=== PATIENT | female | born 1995 | race Caucasian/White ===

== ENCOUNTER 2020-08-12 19:27 | Emergency (ER) | payer SELFPAY ==
[2020-08-12 19:33] VITALS: BP 130/87; PULSE 108; RESP 14; TEMP 36.9; O2SAT 96; BMI 35.5
--- NOTE | 2020-08-12 20:06 | XRR_ITS ---
PROCEDURE INFORMATION: Exam: XR Chest Exam date and time: 08/12/2020 8:08 PM Age: 24 years old Clinical indication: Shortness of breath; Patient HX: Nausea, STEIN, allergies this week, and chest pressure; Additional info: Unwell feeling TECHNIQUE: Imaging protocol: XR of the chest. Views: 1 view. COMPARISON: No relevant prior studies available. FINDINGS: No focal pulmonary consolidation is demonstrated on this single frontal image. No significant obscuration of the lateral costophrenic angles is demonstrated. No significant vascular congestion is demonstrated. Visualized cardiac silhouette size appears within normal limits. XR/XR chest 1V portable [id number] IMPRESSION: No acute pulmonary process is demonstrated.
--- NOTE | 2020-08-12 20:06 | CTR_ITS ---
PROCEDURE INFORMATION: Exam: CT Head Without Contrast Exam date and time: 08/12/2020 8:08 PM Age: 24 years old Clinical indication: Pain; Prior surgery; Surgery type: Cholesteatoma; Patient HX: Headache. TECHNIQUE: Imaging protocol: Computed tomography of the head without contrast. Radiation optimization: All CT scans at this facility use at least one of these dose optimization techniques: automated exposure control; mA and/or kV adjustment per patient size (includes targeted exams where dose is matched to clinical indication); or iterative reconstruction. ADDITIONAL STUDY INFORMATION: Total DLP (mGy-cm): 832.71 COMPARISON: No relevant prior studies available. FINDINGS: Evaluation of the brain demonstrates no areas of abnormal density. Size of ventricular system appears within normal limits for the patient's stated age. No depressed calvarial fracture is demonstrated. There are changes of partial left mastoidectomy, with ill-defined density in this region which could be postoperative changes but residual neoplasm cannot be excluded. Visualized paranasal sinuses and right mastoid air cells demonstrate no significant opacification. CT/CT head wo con* [id number] IMPRESSION: No acute intracranial process is demonstrated. There are changes of partial left mastoidectomy, with ill-defined density in this region which could be postoperative changes but residual neoplasm cannot be excluded. No prior studies are available for comparison. Radiation Dose CTDIVOL = (mGy): DLP = 832.71 (mGy-cm)
--- NOTE | 2020-08-12 20:08 | W.ED.GENADLT ---
HPI - General Adult General: Chief complaint: General Medical Stated complaint: General unwellness Time Seen by Provider: 08/12/20 19:32 Source: patient and family (grandmother) Mode of arrival: ambulatory Limitations: no limitations History of Present Illness: HPI narrative: Patient is a 24-year-old female who presents to ED today along with her grandmother for complaints of feeling unwell. Patient tells me last week she had asthma symptoms consisting of nasal drainage/congestion, sinus pain, and a sore throat. She tells me those symptoms seem to get better however she still complains of a mild sore throat. She tells me today she woke up with a headache that she is rating at a 7/10. She does tell me she has a history of migraine headaches when she was a teenager has not had one in a long time. She tells me she does have sensitivity to light and sound which is typical for her migraines however she states her headache is located in the frontal region and seems to be worse with sitting up and walking and improved with lying flat which she states is uncharacteristic. When asked if this is the worst headache of her life she states oh no I've had much worse . She does complain of feeling nauseous but has not had any episodes of vomiting. No visual changes. No fevers. She states on the ride over here she began feeling flushed thus rolled down a window and states she began having chest pain. She tells me she has a history of asthma diagnosed as a child but has never had any issues with this. She is not currently complaining of shortness of breath or difficulty breathing. She states the pain in her chest is worse with inhalation. She is complaining of fatigue but states she is chronically fatigued. She states she had a sleep study several years ago which showed abnormal sleep patterns. She does not complain of neck pain or neck stiffness. Onset (ago): day(s) Associated symptoms: Reports chest pain, headache(s) and nausea; Deny confusion, dyspnea, malaise, rash, palpitations, syncope or vomiting Treatments prior to arrival: none Review of Systems Const: Reports: fatigue (chronic); Denies: fever(s), chills, body aches, change in appetite, change in weight, malaise or night sweats Eyes: Reports: photophobia; Denies: change in vision, blurry vision, floaters or seeing flashes ENMT: Reports: throat pain, odynophagia and sinus pain (frontal); Denies: ear or mastoid pain, ear discharge, disequilibrium, nasal discharge, nasal congestion, epistaxis or post nasal drip Card: Reports: chest pain; Denies: palpitations, irregular heart rhythm, edema, swelling of feet/ankles, lightheadedness, syncope, pre-syncope, dyspnea on exertion, orthopnea or leg pain with exertion Resp: Reports: pain on inspiration; Denies: dyspnea, productive cough, non-productive cough, change in phlegm color, hemoptysis or chest congestion GI: Reports: nausea; Denies: abdominal pain, vomiting or diarrhea : Denies: flank pain, difficulty voiding, dysuria, urinary frequency, urinary urgency or urinary hesitancy Musc: Denies: neck pain, back pain or joint pain Skin/Breast: Denies: rash Neuro: Reports: headache(s); Denies: numbness in extremities, weakness in extremities, sensory changes, lack of coordination, difficulty walking, frequent falls, dizziness or confusion Physical Exam Const: COMMON NORMALS: no acute distress, average body habitus, patient oriented x3, no limitations, healthy appearing, alert and well nourished GENERAL APPEARANCE: cooperative ORIENTATION/CONSCIOUSNESS: Yes awake, Yes oriented to person, Yes oriented to place and Yes oriented to time HENMT: COMMON NORMALS: normocephalic, atraumatic, hearing grossly normal bilaterally, external ears normal, EAC's normal, Normal external nose present, Normal nasal mucous membranes and turbinates present, moist oral mucous membranes, oropharynx normal, dentition normal and gingiva normal HEAD & SCALP: normal to inspection, normocephalic and atraumatic FACE & SINUS: normal facial exam and sinus tenderness frontal NOSE: Normal external nose present and Normal nasal mucous membranes and turbinates present EXTERNAL EAR: Yes external ears normal EXTERNAL AUDITORY CANAL: EAC's normal TYMPANIC MEMBRANE: TM normal on the right and TM abnormal TM laterality: left (changes related to cholesteatoma surgery) MOUTH: Normal oral and palatal mucosa present, lip normal and tongue normal TEETH & GINGIVA: Yes fair dentition THROAT: posterior oropharynx normal, tonsils normal and uvula midline Eye: COMMON NORMALS: Equal, round and reactive pupils present, EOMs intact bilaterally and conjunctivae normal GENERAL EYE: appearance normal, both eyes and all related structures PERIORBITAL: periorbital findings normal CONJUNCTIVA: Yes conjunctivae normal SCLERA: sclerae normal CORNEA: Yes corneas normal PUPIL: Yes Equal, round and reactive pupils present Neck/C-Spine: COMMON NORMALS: full ROM, no lymphadenopathy and no meningeal signs CERVICAL SPINE: Yes cervical ROM normal, No pain with cervical ROM, No Cervical spine tenderness and No Paracervical muscle tenderness OTHER: Negative Kerning and Brudzinski's sign Resp: COMMON NORMALS: normal respiratory effort and clear to auscultation bilaterally AUSCULTATION: clear to auscultation bilaterally Cardio: COMMON NORMALS: regular rate and regular rhythm RATE: regular rate RHYTHM: regular rhythm GI: COMMON NORMALS: Normal to inspection, nondistended, normoactive bowel sounds present, Soft to palpation, non-tender, No hepatosplenomegaly present and no masses PALPATION: Yes Soft to palpation and Yes No hepatosplenomegaly present Back/Pelvis: COMMON NORMALS: thoracic and lumbar spine normal to inspection, no thoracic nor lumbar tenderness, thoraco-lumbar ROM normal and straight leg raise negative bilaterally Extremity: COMMON NORMALS: normal to inspection and full ROM GENERAL: Yes normal exam except as noted Neuro: EDGAR COMA SCALE: document GCS findings Edgar coma scale eye opening: Spontaneous Rawlings coma scale verbal response: Orientated Rawlings coma scale motor response: Obey commands Rawlings coma scale total score: 15 COMMON NORMALS: patient oriented x3 and moves all extremities SENSORIUM/ORIENTATION: Yes alert, Yes oriented to person, Yes oriented to place and Yes oriented to time MENINGEAL SIGNS: Yes no meningeal signs Skin: COMMON NORMALS: no rashes or lesions noted GENERAL SKIN EXAM: no rashes or lesions noted TRAUMA: no lacerations or abrasions Course Vital Signs: Vital signs: Vital Signs Temperature 98.4 F 08/12/20 19:33 Pulse Rate 95 08/12/20 21:38 Respiratory Rate 18 08/12/20 21:38 Blood Pressure 118/69 08/12/20 21:38 Pulse Oximetry 97 08/12/20 21:38 MDM - General Adult MDM Narrative: Medical decision making narrative: Patient here with several physical complaints including headache. Questionable whether this was a migraine or possibly related to viral illness. She complains of a sore throat, nausea, fatigue and chest pain. URI symptoms last week. Her vital signs are normal. Work-up is fairly unremarkable. She has a nonspecific mild elevation to her CRP. Villalba and COVID are negative. CXR is normal. Head CT is normal. Radiologist did comment on changes related to her left mastoidectomy. She does not complain of ear pain or drainage. Clinically physical exam is not concerning for meningitis. At this time we discussed symptomatic treatment for possible viral infection. Close follow-up recommended and strict return to ED precautions were discussed. Lab Data: Labs: Lab Results 08/12/20 08/12/20 08/12/20 Range/Units 20:24 20:34 20:34 WBC 7.5 (4.0-10.0) 10^3/ uL RBC 5.15 (4.1-5.3) 10^6/u L Hgb 15.3 (11.5-15.3) g/dL Hct 45.1 (37.0-47.0) % MCV 87.6 (81-99) fL MCH 29.7 (28.0-34.0) pg MCHC 33.9 (30.0-36.0) g/dL RDW 12.8 (12.1-15.1) % Plt Count 222 (130-400) 10^3/c mm MPV 9.3 (7.4-10.4) fL Neut % (Auto) 69.5 % Lymph % (Auto) 19.5 % Villalba % (Auto) 10.1 % Eos % (Auto) 0.4 % Baso % (Auto) 0.4 % Neut # (Auto) 5.23 (1.8-7.7) 10^3/u L Lymph # (Auto) 1.5 (0.8-4.8) 10^3/u L Villalba # (Auto) 0.8 (0.2-0.9) 10^3/u L Eos # (Auto) 0.0 (0.0-0.8) 10^3/u L Baso # (Auto) 0.0 (0.0-0.1) 10^3/u L Nucleated RBC % (a uto) 0 % Nucleated RBCs # 0.0 /100WBC Sodium 137 (136-145) mmol/L Potassium 3.7 (3.5-5.1) mmol/L Chloride 101 (98-107) mmol/L Carbon Dioxide 26 (22-29) mmol/L Anion Gap 13.7 (5-19) BUN 12 (6-20) mg/dL Creatinine 0.8 (0.5-0.9) mg/dL GFR Calculation 88.9 L (90-130) mL/min Glucose 89 (65-115) mg/dL Calculated Osmolal ity 283 L (285-295) mOsm/k g Calcium 8.8 (8.5-10.5) mg/dL Total Bilirubin 0.6 (0.15-1.2) mg/dL AST 13 (0-32) U/L ALT 12 (0-33) U/L Alkaline Phosphata se 88 (35-105) IU/L C-Reactive Protein 10.2 H (0.0-4.9) mg/L Total Protein 7.5 (6.6-8.7) g/dL Albumin 4.2 (3.5-5.2) g/dL Globulin 3.3 (1.3-4.6) g/dL HCG, Qual (Negative) Urine Color Yellow (Yellow) Urine Appearance Hazy A (CLEAR) Urine pH 8 H (5-7) Ur Specific Gravit y 1.010 (1.005-1.030) Urine Protein Neg (Negative) Urine Glucose (UA) Norm (Normal) Urine Ketones Negative (Negative) Urine Blood Neg (Negative) Urine Nitrate Negative (Negative) Urine Bilirubin Neg (Negative) Urine Urobilinogen 8 H (Negative) mg/dL Ur Leukocyte Licha ase Negative (Negative) Urine RBC 0-4 H (0-2) /hpf Urine WBC 0-4 H (0-5) /hpf Ur Squamous Epith Cells 0-4 H (0-5) /hpf Amorphous Sediment 3+ /hpf Urine Bacteria 2+ H (NONE) /hpf Monoscreen (Negative) SARS-CoV-2 Ag (Rap id) (Negative) 08/12/20 08/12/20 Range/Units 20:34 21:50 WBC (4.0-10.0) 10^3/ uL RBC (4.1-5.3) 10^6/u L Hgb (11.5-15.3) g/dL Hct (37.0-47.0) % MCV (81-99) fL MCH (28.0-34.0) pg MCHC (30.0-36.0) g/dL RDW (12.1-15.1) % Plt Count (130-400) 10^3/c mm MPV (7.4-10.4) fL Neut % (Auto) % Lymph % (Auto) % Villalba % (Auto) % Eos % (Auto) % Baso % (Auto) % Neut # (Auto) (1.8-7.7) 10^3/u L Lymph # (Auto) (0.8-4.8) 10^3/u L Villalba # (Auto) (0.2-0.9) 10^3/u L Eos # (Auto) (0.0-0.8) 10^3/u L Baso # (Auto) (0.0-0.1) 10^3/u L Nucleated RBC % (a uto) % Nucleated RBCs # /100WBC Sodium (136-145) mmol/L Potassium (3.5-5.1) mmol/L Chloride (98-107) mmol/L Carbon Dioxide (22-29) mmol/L Anion Gap (5-19) BUN (6-20) mg/dL Creatinine (0.5-0.9) mg/dL GFR Calculation (90-130) mL/min Glucose (65-115) mg/dL Calculated Osmolal ity (285-295) mOsm/k g Calcium (8.5-10.5) mg/dL Total Bilirubin (0.15-1.2) mg/dL AST (0-32) U/L ALT (0-33) U/L Alkaline Phosphata se (35-105) IU/L C-Reactive Protein (0.0-4.9) mg/L Total Protein (6.6-8.7) g/dL Albumin (3.5-5.2) g/dL Globulin (1.3-4.6) g/dL HCG, Qual Negative (Negative) Urine Color (Yellow) Urine Appearance (CLEAR) Urine pH (5-7) Ur Specific Gravit y (1.005-1.030) Urine Protein (Negative) Urine Glucose (UA) (Normal) Urine Ketones (Negative) Urine Blood (Negative) Urine Nitrate (Negative) Urine Bilirubin (Negative) Urine Urobilinogen (Negative) mg/dL Ur Leukocyte Licha ase (Negative) Urine RBC (0-2) /hpf Urine WBC (0-5) /hpf Ur Squamous Epith Cells (0-5) /hpf Amorphous Sediment /hpf Urine Bacteria (NONE) /hpf Monoscreen Negative (Negative) SARS-CoV-2 Ag (Rap id) Negative (Negative) Imaging Data^: CXR: Radiologist's impression: [address] [address] XRay Report Signed Patient: Rosalie Khalil Unit #: [id number] : 1995 Age/Sex: 24 / F ADM Date: 08/12/20 Loc: ER Room/Bed: Attending Dr: Ordering Provider/Ordering MD: Ellen Washington Date of Service: 08/12/20 Procedure(s): XR chest 1V portable [id number] Accession Number(s): [id number] Report Number: [id number] PROCEDURE INFORMATION: Exam: XR Chest Exam date and time: 08/12/2020 8:08 PM Age: 24 years old Clinical indication: Shortness of breath; Patient HX: Nausea, STEIN, allergies this week, and chest pressure; Additional info: Unwell feeling TECHNIQUE: Imaging protocol: XR of the chest. Views: 1 view. COMPARISON: No relevant prior studies available. FINDINGS: No focal pulmonary consolidation is demonstrated on this single frontal image. No significant obscuration of the lateral costophrenic angles is demonstrated. No significant vascular congestion is demonstrated. Visualized cardiac silhouette size appears within normal limits. XR/XR chest 1V portable [id number] IMPRESSION: No acute pulmonary process is demonstrated. Dictated By: Anisa Guajardo MD Signed By: Anisa Guajardo MD Signed Date/Time: 08/12/202099 DD/ 58 CT Head: Radiologist's impression: [place] [address] [address] [address] Scan Report Signed Patient: Rosalie Khalil Unit #: [id number] : 1995 Age/Sex: 24 / F ADM Date: 08/12/20 Loc: ER Room/Bed: Attending Dr: Ordering Provider/Ordering MD: Ellen Washington Date of Service: 08/12/20 Procedure(s): CT head wo con* [id number] Accession Number(s): [id number] Report Number: [id number] PROCEDURE INFORMATION: Exam: CT Head Without Contrast Exam date and time: 08/12/2020 8:08 PM Age: 24 years old Clinical indication: Pain; Prior surgery; Surgery type: Cholesteatoma; Patient HX: Headache. TECHNIQUE: Imaging protocol: Computed tomography of the head without contrast. Radiation optimization: All CT scans at this facility use at least one of these dose optimization techniques: automated exposure control; mA and/or kV adjustment per patient size (includes targeted exams where dose is matched to clinical indication); or iterative reconstruction. ADDITIONAL STUDY INFORMATION: Total DLP (mGy-cm): 832.71 COMPARISON: No relevant prior studies available. FINDINGS: Evaluation of the brain demonstrates no areas of abnormal density. Size of ventricular system appears within normal limits for the patient's stated age. No depressed calvarial fracture is demonstrated. There are changes of partial left mastoidectomy, with ill-defined density in this region which could be postoperative changes but residual neoplasm cannot be excluded. Visualized paranasal sinuses and right mastoid air cells demonstrate no significant opacification. CT/CT head wo con* [id number] IMPRESSION: No acute intracranial process is demonstrated. There are changes of partial left mastoidectomy, with ill-defined density in this region which could be postoperative changes but residual neoplasm cannot be excluded. No prior studies are available for comparison. Radiation Dose CTDIVOL = (mGy): DLP = 832.71 (mGy-cm) Dictated By: Anisa Guajardo MD Signed By: Anisa Guajardo MD Signed Date/Time: 08/12/202046 DD/ 44 EKG Data^: EKG 1: EKG interpretation date: 08/12/20 EKG interpretation time: 19:46 Interpretation: Sinus tachycardia Rate [address] elevation or depression changes noted Computer generated interpretation: Chest X-Ray 08/12/20 20:06 IMPRESSION: No acute pulmonary process is demonstrated. Head CT 08/12/20 20:06 IMPRESSION: No acute intracranial process is demonstrated. There are changes of partial left mastoidectomy, with ill-defined density in this region which could be postoperative changes but residual neoplasm cannot be excluded. No prior studies are available for comparison. Radiation Dose CTDIVOL = (mGy): DLP = 832.71 (mGy-cm) Discharge Plan Discharge Patient Disposition: Home Clinical Impression: Viral illness Condition: Stable Prescriptions: No Action Tylenol 325 mg Tablet 325 - 650 mg PO Q4H PRN (Reason: PAIN) RF: 0 Midol 500-25 mg Tablet 1 tab PO DAILY RF: 0 ibuprofen 200 mg Tablet 200 mg PO Q6H PRN (Reason: Pain) RF: 0 Claritin 10 mg Tablet 10 mg PO DAILY PRN (Reason: Allergy Symptoms) RF: 0 duloxetine 30 mg capsule,delayed release(DR/EC) 30 mg PO DAILY RF: 0 Discharge Orders: Discharge ED (Routine); Ordered 08/12/20 Ordered By: Ellen Washington Activity Restrictions/Additional Instructions: Your COVID test was negative. As we discussed rest and continue to push fluids at home. You need to return to the emergency department for worsening headache, neck pain/stiffness, fevers, worsening general unwellness feeling, shortness of breath or difficulty breathing, or any other concerns you may have. I hope you begin to feel better soon. 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
[2020-08-12] MEDS: ondansetron 2 mg/ML SDV 2 mL 4 MG IVP (20:37)
[2020-08-12] MEDS: ketorolac 60 mg/2 mL INJ 30 MG IM (20:37)
[2020-08-12] MEDS: diphenhydrAMINE 50 mg/mL SDV 1mL 25 MG IVP (20:37)
[2020-08-12] MEDS: sodium chloride 0.9% 1,000 ML 999 ML IV (20:38)
[2020-08-12 20:47] LABS: Basophils % 0.4 %; Eosinophils % 0.4 %; Hematocrit 45.1 % (37.0-47.0); Hemoglobin 15.3 g/dL (11.5-15.3); Lymphocytes # 1.5 10^3/uL (0.8-4.8); Lymphocytes % 19.5 %; Mean Corpuscular HGB Conc 33.9 g/dL (30.0-36.0); Mean Corpuscular Hemoglobin 29.7 pg (28.0-34.0); Mean Corpuscular Volume 87.6 fL (81-99); Mean Platelet Volume 9.3 fL (7.4-10.4); Monocytes # 0.8 10^3/uL (0.2-0.9); Monocytes % 10.1 %; Neutrophils # 5.23 10^3/uL (1.8-7.7); Neutrophils % 69.5 %; Nucleated Red Blood Cells % 0 %; Platelet Count 222 10^3/cmm (130-400); Red Blood Count 5.15 10^6/uL (4.1-5.3); Red Cell Distribution Width 12.8 % (12.1-15.1); White Blood Count 7.5 10^3/uL (4.0-10.0)
[2020-08-12 20:55] LABS: Add Urine Culture? Yes; Add Urine Microscopic? YES; Amorphous Sediment Urine 3+ /hpf; Bacteria Urine 2+ /hpf; Bilirubin Urine Neg (Negative); Blood Urine Neg (Negative); Glucose Urine UA Norm (Normal); Ketones Urine Negative (Negative); Leukocyte Esterase Urine Negative (Negative); Nitrate Urine Negative (Negative); Protein Urine Neg (Negative); RBC Urine 0-4 /hpf (0-2); Squamous Epithelial Cell Urine 0-4 /hpf (0-5); Urine Appearance Hazy (CLEAR); Urine Color Yellow (Yellow); Urobilinogen Urine 8 mg/dL (Negative); WBC Urine 0-4 /hpf (0-5); pH Urine 8 (5-7)
[2020-08-12 20:57] LABS: HCG, Serum Qual Negative (Negative)
[2020-08-12 20:58] LABS: Monoscreen Negative (Negative)
[2020-08-12 21:04] LABS: Alanine Aminotransferase 12 U/L (0-33); Albumin Level 4.2 g/dL (3.5-5.2); Alkaline Phosphatase 88 IU/L (35-105); Anion Gap 13.7 (5-19); Aspartate Amino Transferase 13 U/L (0-32); Blood Urea Nitrogen 12 mg/dL (6-20); C Reactive Protein 10.2 mg/L (0.0-4.9); Calcium 8.8 mg/dL (8.5-10.5); Carbon Dioxide 26 mmol/L (22-29); Chloride 101 mmol/L (98-107); Globulin 3.3 g/dL (1.3-4.6); Glomerular Filtration Rate 88.9 mL/min (90-130); Glucose 89 mg/dL (65-115); Osmolality Calculated 283 mOsm/kg (285-295); Potassium 3.7 mmol/L (3.5-5.1); Sodium 137 mmol/L (136-145); Total Bilirubin 0.6 mg/dL (0.15-1.2); Total Protein 7.5 g/dL (6.6-8.7)
[2020-08-12 21:38] VITALS: BP 118/69; PULSE 95; RESP 18; O2SAT 97
[2020-08-12 22:11] LABS: SARS Covid-2 Antigen Negative (Negative)
[2020-08-12 22:40] VITALS: BP 110/67; PULSE 86; RESP 18; O2SAT 96
== END 2020-08-12 22:40 | disposition home or self-care (01) ==
PROVIDERS: Emergency Provider Physician Assistant
DX: B34.9 Viral infection, unspecified (principal)
CPT/HCPCS: 70450; 71045; 80053; 81001; 84703; 85025; 86140; 86308; 87086; 87426; 96361; 96374; 96375; 99284; J1200; J1885; J2405; J7030